=== PATIENT | female | born 1965 | race Caucasian/White ===

== ENCOUNTER 2018-09-13 23:27 | Observation (INO) | payer OTHER ==
[~2018-09-13] VITALS: Ht 157.5 cm; Wt 69.9 kg
[2018-09-13 23:35] VITALS: BP 130/59
[2018-09-13] MEDS ORDERED: NOHOMEMEDICATIONS (23:42)
[2018-09-14 00:09] LABS: ABSOLUTE BASOPHILS 0.1 thou/uL (0.0-0.2); ABSOLUTE EOSINOPHILS 0.1 thou/uL (0.0-0.7); ABSOLUTE LYMPHOCYTES 2.7 thou/uL (0.8-5.3); ABSOLUTE MONOCYTES 0.7 thou/uL (0.0-1.2); BASOPHILS 0.9 %; EOSINOPHILS 0.9 %; HEMATOCRIT 42.3 % (37.0-47.0); HEMOGLOBIN 13.8 gm/dL (12.0-15.0); LYMPHOCYTES 28.3 %; MCHC 32.5 g/dL (28.0-37.0); MCV 89.1 fL (80.0-100.0); MONOCYTES 7.6 %; MPV 9.5 fl. (7.2-11.1); NUCLEATED RBCS 0 /100WBC; PLATELET COUNT* 258 thou/uL (150-400); POLYS 62.3 %; RBC 4.75 mil/uL (4.20-5.00); RDW-CV 13.8 % (10.5-14.5); WBC 9.6 thou/uL (4.0-11.0)
[2018-09-14 00:39] LABS: ANION GAP 11 mmol/L (7-16); BUN 14 mg/dL (7-18); CALCIUM 9.1 mg/dL (8.5-10.1); CHLORIDE 104 mmol/L (98-107); CO2 27 mmol/L (21-32); CREATININE 0.9 mg/dL (0.6-1.3); GLUCOSE 115 mg/dL (70-99); INR 1.1; POTASSIUM 3.5 mmol/L (3.5-5.1); PROTIME 11.3 Seconds (9.20-11.50); SODIUM 142 mmol/L (136-145)
[2018-09-14 00:46] LABS: ALBUMIN 3.7 g/dL (3.4-5.0); ALKALINE PHOSPHATASE 88 U/L (46-116); SGOT 32 U/L (15-37); SGPT 53 U/L (30-65); TOTAL BILIRUBIN 0.4 mg/dL (<0.1-1.0); TOTAL PROTEIN 7.9 g/dL (6.4-8.2); TROPONIN-I LEVEL <0.06 ng/mL (<0.06)
[2018-09-14 03:58] VITALS: BP 137/59
[2018-09-14 04:15] VITALS: BP 145/62
[2018-09-14 08:00] VITALS: BP 119/52
[2018-09-14] MEDS ORDERED: IBUPROFEN 600600 M1 PO (09:44)
[2018-09-14] MEDS ORDERED: CYCLOBENZAPRINE10 MG PO (09:59)
[2018-09-14 10:35] VITALS: BP 119/52
[2018-09-14 10:42] LABS: URINE BILIRUBIN NEGATIVE (Negative); URINE BLOOD NEGATIVE (Negative); URINE CLARITY CLEAR; URINE COLOR YELLOW; URINE GLUCOSE-RANDOM NEGATIVE (Negative); URINE KETONES NEGATIVE (Negative); URINE LEUKOCYTES-REFLEX NEGATIVE (Negative); URINE NITRITE-REFLEX NEGATIVE (Negative); URINE PROTEIN NEGATIVE (Negative); URINE UROBILINOGEN 0.2 E.U./dl (0.2-1.0)
--- NOTE | 2018-09-14 15:28 | EKG ---
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
== END 2018-09-14 12:41 | disposition home or self-care (01) ==
LOC: M.ERS 23:27 → M.2W 09-14 03:17 → M.TBA-ER 09-14 03:17 → M.2W 09-14 03:17 → M.ERS 09-14 03:59 → M.2W 09-14 04:00
PROVIDERS: Emergency Medicine; Family Medicine; Physician Assistant; ADMIT Internal Medicine
DX: G43.909 Migraine, unspecified, not intractable, without status migrainosus (principal); S46.912A Strain of unspecified muscle, fascia and tendon at shoulder and upper arm level, left arm, initial encounter; S46.811A Strain of other muscles, fascia and tendons at shoulder and upper arm level, right arm, initial encounter; E03.9 Hypothyroidism, unspecified; X58.XXXA Exposure to other specified factors, initial encounter; Y93.89 Activity, other specified; Y92.89 Other specified places as the place of occurrence of the external cause; Y99.8 Other external cause status; Z88.0 Allergy status to penicillin; Z79.899 Other long term (current) drug therapy

== ENCOUNTER 2021-01-23 21:00 | Inpatient (IN) | payer OTHER ==
[~2021-01-23] VITALS: Ht 154.9 cm; Wt 62.1 kg
--- NOTE | ~2021-01-23 | OP ---
[address] [address] OPERATIVE REPORT Name: MOE MONSALVE Room: [address] IN M.R.#: [id number] Admission: 01/24/21 Attend Phys: Andrews Shrestha MD Discharge: Date of : 61 Report #: [id number] THIS REPORT FOR: cc: FAM - No family physician/PCP FAM - No family physician/PCP Marcy Mtz DO ~ DICTATED BY: Merari Lima DO DATE OF SERVICE: 01/24/2021 PREOPERATIVE DIAGNOSIS: Acute cholecystitis with cholelithiasis. POSTOPERATIVE DIAGNOSIS: Acute cholecystitis with cholelithiasis. PROCEDURE PERFORMED: Laparoscopic cholecystectomy. PRIMARY SURGEON: Marcy Mtz DO MARKETING SERVICES MANAGER: Merari Lima DO, PGY3. SECOND LEAD ELECTRICAL CONTROLS ENGINEER: MS Juan3. ANESTHESIA: General and local. ESTIMATED BLOOD LOSS: 10 mL. SPECIMEN: Gallbladder. OPERATIVE FINDINGS: Hugely distended gallbladder with large stones and acute inflammation. COMPLICATIONS: None. INDICATIONS FOR PROCEDURE: The patient is a pleasant 55-year-old female that presented to the Emergency Department with complaint of recurrent epigastric and right upper quadrant abdominal pain associated with nausea and vomiting. She had a CT scan and an ultrasound that both showed cholelithiasis and findings consistent with acute cholecystitis. It was recommended that she undergo laparoscopic cholecystectomy. The procedure, risks, benefits, possible complications to include bleeding, infection, injury to surrounding structures, bile leak, injury to the bile duct, need for additional surgery, risks of anesthesia, and other risks of surgery were discussed with the patient in great detail. She voiced complete understanding and wished to proceed with surgery. DESCRIPTION OF PROCEDURE: Informed consent was obtained[place] [id number] OPERATIVE REPORT Name: MOE MONSALVE Room: [address] IN M.R.#: [id number] Admission: 01/24/21 Attend Phys: Andrews Shrestha MD Discharge: Date of : 61 Report #: [id number] to the operating room and placed supine on the operating room table. General endotracheal anesthesia was induced without difficulty. SCDs were placed on bilateral lower extremities. She was already receiving antibiotics in the perioperative period. Abdomen was prepped and draped in standard sterile fashion. A timeout was performed to ensure correct patient and procedure. Approximately 10 mL of 0.5% Marcaine were injected into the infraumbilical region. A 3 cm infraumbilical horizontal incision was made using a #11 blade scalpel. Incision was carried down through the subcutaneous tissue using electrocautery. S retractors were used to dissect further down to the level of fascia. Fascia was grasped between 2 Kochers and elevated. Fascia was incised with electrocautery. Peritoneum was entered bluntly using hemostat. Finger sweep was performed to ensure there were no ting-incisional adhesions. The 0 Vicryl stay sutures were placed on either side of the fascial opening. A 12 mm Giovanni trocar was inserted through the fascial opening. Abdomen was insufflated without difficulty. Laparoscopic camera was inserted and a sweep of the anterior abdominal contents was performed. The omentum was caked over the liver edge and the gallbladder. The patient was placed in the reverse Trendelenburg position with the left side down. A subxiphoid 5 mm trocar was inserted under direct visualization. Blunt grasper was inserted and the right upper quadrant was explored. The gallbladder appeared to be acutely inflamed and was completely enrobed in omental adhesions. Two right upper quadrant 5 mm trocars were inserted under direct visualization. Corn Crop Supervisor grasped the fundus of the gallbladder and retracted it superiorly and anteriorly. The omental adhesions were gently taken down using electrocautery and blunt dissection. The suction judicial clerk was also used to assist with blunt dissection. Jerod's pouch was grasped. The peritoneum overlying Jerod's pouch was scored with electrocautery and the lateral aspect of the gallbladder was opened up using blunt dissection and a small amount of electrocautery. The peritoneum along the medial aspect of the gallbladder was opened up as well using mostly blunt dissection and a small amount of electrocautery. The cystic duct and cystic artery were freed from all surrounding tissues using mostly blunt dissection. A [place] dissector was used to dissect a window posterior to the cystic duct and cystic artery. Once both these structures were freed from surrounding tissues, we had achieved our critical view of safety. There were 2 and only 2 structures coursing into the gallbladder and the hepatic plate was visualized. The cystic duct and cystic artery were doubly clipped and ligated. The gallbladder was removed from the liver bed using electrocautery, ensuring hemostasis along the way. Gallbladder was placed within an EndoCatch bag. The liver edge was elevated and reinspected. Hemostasis was achieved with electrocautery. Suction judicial clerk was used to irrigate the right upper quadrant. Clips were reinspected and they appeared to be in good position with no leak. The patient was then flattened out. The three 5 mm trocars were removed under direct visualization and the abdomen was desufflated. The 12 mm Giovanni trocar was removed as well as the gallbladder within the EndoCatch bag. Previously placed stay sutures were grasped and elevated. Fascia at the infraumbilical incision was grasped between [place] [id number] OPERATIVE REPORT Name: GRICELAGUSShadi Forde Room: [address] M.R.#: [id number] Admission: 01/24/21 Attend Phys: Andrews Shrestha MD Discharge: Date of : 61 Report #: [id number] 2 Kochers. Previously placed stay sutures were removed. Fascia was closed using 0 Vicryl suture in a [id number] fashion. Subcutaneous tissues were reapproximated using 3-0 Vicryl suture in a simple interrupted and inverted fashion. Approximately 30 mL of 0.5% Marcaine were used for local anesthesia. The skin at the infraumbilical incision was closed using 4-0 Monocryl suture in a running subcuticular fashion. The 5 mm trocar sites were closed using 4-0 Monocryl suture in a simple interrupted and inverted fashion. Skin was cleansed and dried. Dermabond was applied to each incision. The patient tolerated the procedure very well. She was allowed to awaken in the operating room, was transferred to the PACU in stable condition. By: [id number] Mtz DO /bladimir
[~2021-01-23 21:00] MED LIST: CYCLOBENZAPRINE10 MG PO; IBUPROFEN 600600 M1 PO; NOHOMEMEDICATIONS
[2021-01-23 21:27] VITALS: BP 172/73
[2021-01-23 21:57] LABS: URINE BILIRUBIN NEGATIVE (Negative); URINE BLOOD NEGATIVE (Negative); URINE CLARITY CLEAR; URINE COLOR YELLOW; URINE GLUCOSE-RANDOM NEGATIVE (Negative); URINE LEUKOCYTES-REFLEX NEGATIVE (Negative); URINE NITRITE-REFLEX NEGATIVE (Negative); URINE PROTEIN TRACE (Negative); URINE UROBILINOGEN 0.2 E.U./dl (0.2-1.0)
[2021-01-23 21:59] LABS: URINE KETONES 3+ (Negative)
[2021-01-23 22:13] LABS: HEMATOCRIT 43.2 % (37.0-47.0); HEMOGLOBIN 14.2 gm/dL (12.0-15.0); MCHC 32.8 g/dL (28.0-37.0); MCV 88.5 fL (80.0-100.0); MPV 9.1 fl. (7.2-11.1); NUCLEATED RBCS 0 /100WBC; PLATELET COUNT* 234 thou/uL (150-400); RBC 4.88 mil/uL (4.20-5.00); RDW-CV 13.6 % (10.5-14.5); WBC 14.2 thou/uL (4.0-11.0)
[2021-01-23 22:20] LABS: CALCIUM 8.7 mg/dL (8.5-10.1); CREATININE 0.6 mg/dL (0.6-1.3)
[2021-01-23 22:25] LABS: ALBUMIN 4.5 g/dL (3.4-5.0); TOTAL BILIRUBIN 0.8 mg/dL (<0.1-1.0); TOTAL PROTEIN 9.2 g/dL (6.4-8.2)
[2021-01-23 22:43] LABS: ABSOLUTE LYMPHOCYTES 1.4 thou/uL (0.8-5.3); ABSOLUTE MONOCYTES 0.3 thou/uL (0.0-1.2); ABSOLUTE NEUTROPHILS 12.5 thou/uL (1.6-8.1)
[2021-01-23 22:44] LABS: PLATELET ESTIMATE ADEQUATE
[2021-01-24 01:17] VITALS: BP 158/80; BP 166/75
[2021-01-24 08:00] VITALS: BP 164/70
[2021-01-24 09:57] LABS: HEMATOCRIT 40.2 % (37.0-47.0); HEMOGLOBIN 13.1 gm/dL (12.0-15.0); MCH 29.1 pg (26.0-34.0); MCHC 32.6 g/dL (28.0-37.0); MCV 89.2 fL (80.0-100.0); MPV 8.7 fl. (7.2-11.1); RBC 4.51 mil/uL (4.20-5.00); RDW-CV 13.8 % (10.5-14.5); WBC 13.2 thou/uL (4.0-11.0)
[2021-01-24 10:15] LABS: ALBUMIN 3.5 g/dL (3.4-5.0); CREATININE 0.4 mg/dL (0.6-1.3); MAGNESIUM 2.2 mg/dL (1.8-2.4); PHOSPHORUS* 3.4 mg/dL (2.5-4.9); POTASSIUM 3.6 mmol/L (3.5-5.1); TOTAL BILIRUBIN 0.6 mg/dL (<0.1-1.0); TOTAL PROTEIN 7.8 g/dL (6.4-8.2)
[2021-01-24 13:08] VITALS: BP 116/53
[2021-01-24 20:00] VITALS: BP 117/60
[2021-01-25] VITALS: BP 107/50
[2021-01-25 04:03] VITALS: BP 127/64
[2021-01-25 04:28] LABS: HEMATOCRIT 37.8 % (37.0-47.0); HEMOGLOBIN 12.3 gm/dL (12.0-15.0); MCH 29.3 pg (26.0-34.0); MCHC 32.6 g/dL (28.0-37.0); MPV 9.6 fl. (7.2-11.1); RBC 4.2 mil/uL (4.20-5.00); RDW-CV 13.9 % (10.5-14.5); WBC 10.3 thou/uL (4.0-11.0)
[2021-01-25 05:32] LABS: ALBUMIN 3.2 g/dL (3.4-5.0); CALCIUM 8.2 mg/dL (8.5-10.1); CREATININE 0.5 mg/dL (0.6-1.3); MAGNESIUM 2.4 mg/dL (1.8-2.4); POTASSIUM 3.6 mmol/L (3.5-5.1); TOTAL BILIRUBIN 0.8 mg/dL (<0.1-1.0); TOTAL PROTEIN 7.1 g/dL (6.4-8.2)
[2021-01-25 08:00] VITALS: BP 120/58
[2021-01-25 12:06] VITALS: BP 120/58
== END 2021-01-25 12:50 | disposition home or self-care (01) | DRG 419 ==
LOC: M.ERS 21:00 → M.TBA-ER 01-24 00:05 → M.2W 01-24 01:27
PROVIDERS: Personal Emergency Response Attendant; Surgery; ADMIT Internal Medicine; ATTEND Internal Medicine
PROC: 0FT44ZZ Resection of Gallbladder, Percutaneous Endoscopic Approach (ICD-10-PCS; principal; 2021-01-24)
DX: K80.00 Calculus of gallbladder with acute cholecystitis without obstruction (principal); E03.9 Hypothyroidism, unspecified; G43.909 Migraine, unspecified, not intractable, without status migrainosus; E87.6 Hypokalemia; D72.829 Elevated white blood cell count, unspecified; K57.90 Diverticulosis of intestine, part unspecified, without perforation or abscess without bleeding; Z20.822 Contact with and (suspected) exposure to COVID-19; Z79.899 Other long term (current) drug therapy; Z88.8 Allergy status to other drugs, medicaments and biological substances